=== PATIENT | male | born 1965 | race Caucasian/White ===

== ENCOUNTER 2022-05-08 20:57 | Emergency (ER) | payer SELFPAY ==
[2022-05-08 20:59] VITALS: BP 194/84; PULSE 64; RESP 18; TEMP 37; O2SAT 94; BMI 21.5
[2022-05-08 22:21] VITALS: BP 151/92; PULSE 77
--- NOTE | 2022-05-08 22:22 | EX.ED.VIS.UR ---
HPI HPI - URI History of Present Illness Chief Complaint: Cold Sx Informant: patient Onset/Context/Timing Onset: Weeks (1.5) Context: Gradual Onset Timing: Continuous Quality: Congestion, pressure Location: Face/sinus Current Severity: Moderate Maximum Severity: Moderate Worsened by: - (Nothing) Relieved by: - (Nothing tried decongestants and DayQuil) Associated Symptoms Associated Symptoms: Positive for Nasal Congestion, Headache, Sinus Pressure and Nonproductive cough (Minor, only at night); Negative for Myalgias, Nausea, Vomiting, Shortness of Breath or Chest Pain Narrative Narrative: Patient having URI/sinus symptoms for the past 1.5 weeks. No fevers that he knows of. No dyspnea. Ears are not hurting. States he is so congested he can barely breathe through his nose. ROS ROS ED Constitutional Constitutional ED: Denies chills or fever(s) ENT ENT ED: Reports as per HPI, nasal congestion, rhinorrhea, sinus pain and sinus pressure; Denies ear pain or sore throat Cardiovascular Cardiovascular: Denies chest pain or palpitations Respiratory/Chest Respiratory/Chest: Reports cough; Denies dyspnea Gastrointestinal Gastrointestinal: Denies abdominal pain, diarrhea, nausea or vomiting Genitourinary Genitourinary ED: Denies dysuria or hematuria Musculoskeletal Musculoskeletal: Denies myalgias or neck pain Integumentary Denies abscess or rash Neurologic Neurologic: Denies headache(s), paresthesias or weakness Psychiatric Psychiatric: Denies depression or suicidal thoughts Endocrine Endocrinology: Denies polydipsia or polyuria PFSH PFSH Medical History Smoker Medical History no medical history no medical history Home Medications azithromycin 250 mg tablet See Rx Instructions PO .COMPLEX #6 tabs 05/08/22 [Rx Last Taken Unknown] Allergy/AdvReac Type Severity Reaction Status Date / Time No Known Allergies Allergy Verified 05/08/22 20:58 Social History Smoking Status: Current every day smoker tobacco type: cigarettes EXAM Physical Exam Const Vital Signs: 05/08/22 20:59 05/08/22 21:16 Temperature 98.6 F Temperature Source Temporal Pulse Rate 64 Respiratory Rate 18 Respiratory Effort Normal Respiratory Pattern Normal Blood Pressure 194/84 H Blood Pressure Mean 120 Pulse Ox 94 Oxygen Delivery Method Room Air Positive well nourished and well developed General Appearance ED: well developed and NAD HEENT Reports moist mucous membranes HEENT Narrative: Bilateral maxillary sinus and ethmoid sinus tenderness, mildly tender in the frontals as well. No swelling or erythema. No purulent nasal discharge. There is bilateral nasal turbinate edema worse on the left. normocephalic and atraumatic Throat: Negative for posterior oropharynx abnormal Eyes PERRL and EOMs intact bilaterally Neck no lymphadenopathy, supple and no meningeal signs Resp normal respiratory effort and clear to auscultation bilaterally Cardio no murmurs Rate: regular rate Rhythm: regular rhythm Neuro oriented x3, CN's II-XII intact bilaterally and no sensory deficits noted Sensorium / Orientation: alert Motor Exam: strength 5/5 throughout Skin Lesions: no lesions Rashes: no rashes MDM MDM MDM Narrative Medical decision making narrative: Rapid viral COVID and influenza swabs are negative, given this I think it is reasonable to try him on antibiotics. I did advise that his blood pressure is elevated but he has been taking decongestants and that could be significantly contributing or causing this. He needs to have his blood pressure reevaluated by family physician when he is feeling better and not taking the decongestants anymore. I recommend doing Afrin/oxymetazoline nasal spray as well as needed for his symptoms. He is comfortable with that plan and asking for a work note. Discharge Plan Triage Chief Complaint: Cold Sx ED Provider: Ajith Figueroa Dx/Rx/DC Orders Clinical Impression: Acute sinusitis, Episode of hypertension Instructions: Hypertension Dc, ED Sinusitis (Antibiotic Treatment) Prescriptions: New azithromycin 250 mg tablet See Rx Instructions .ROUTE .COMPLEX Qty: 6 0RF Rx Instructions: For 250 mg dose pack: take 500 mg today (day 1), then 250 mg for 4 days (days 2-5) Stand Alone Forms: ED Work / School Excuse Primary Care Provider: Care Physician,No Primary Referrals: Yesenia Palm MD [Med Staff - Route Salesperson] - 1 Week if not improving Activity Restrictions/Additional Instructions: Try to avoid using oral decongestants given your blood pressure, but you can use oxymetazoline nasal spray, any brand, as needed, 2 sprays each nostril twice daily no more than 3 days at a time. Follow-up if you are not feeling better in a week, but also follow-up after you are feeling better to have your blood pressure reevaluated. Disposition Disposition: Home, Self Care
== END 2022-05-08 22:37 | disposition home or self-care (01) ==
PROVIDERS: Emergency Provider Emergency Medicine; Visit Provider Emergency Medicine
DX: J01.90 Acute sinusitis, unspecified (principal); R51.9 Headache, unspecified; I10 Essential (primary) hypertension; F17.210 Nicotine dependence, cigarettes, uncomplicated; R05.9 Cough, unspecified
CPT/HCPCS: 87428; 99282

== ENCOUNTER 2024-08-14 13:21 | Emergency (ER) | payer OTHER, SELFPAY ==
[2024-08-14 13:22] VITALS: BP 125/88; PULSE 79; RESP 16; TEMP 36.2; O2SAT 99
--- NOTE | 2024-08-14 13:43 | CT_ITS ---
PROCEDURE: CHEST WITHOUT CONTRAST REASON FOR EXAM: 69-year-old male, left anterior rib pain, concern for costochondral separation. TECHNIQUE: Chest CT without contrast. COMPARISON: None. FINDINGS: Hardware: None. Lymph nodes: No mediastinal hilar or axillary lymphadenopathy. Calcified bilateral hilar granulomas. Heart and Vasculature: The heart is normal in size without pericardial effusion. Minimal thoracic aortic calcifications. Thoracic aorta and pulmonary arteries have normal contours; noncontrast technique limits evaluation. Lungs and Airways: The central airways are patent. Mild emphysema and scattered areas of scarring. Right upper lobe lobular pulmonary nodule measuring 1.1 cm (series 4, image 55). Additional right lower lobe pulmonary nodule (series 4, image 67). No pleural effusion or pneumothorax. Upper Abdomen: Calcific plaque of the visualized abdominal aorta. Bones: Linear fracture deformity of the anterior left 4th rib. Thoracolumbar spondylosis. No acute osseous fracture. CT/Chest without Contrast IMPRESSION: 1. Linear fracture deformity of the anterior left 4th rib, which may represent costochondral fracturing in the correct clinical setting. 2. Mild emphysema and scattered areas of scarring. 3. Right upper and lower lobe pulmonary nodules, likely noncalcified granulomas . Correlation with prior chest imaging recommended if available. If not available, follow-up CT chest in 6-12 months is recommended to evaluate for stability. One or more dose reduction techniques were used (e.g., Automated exposure contr ol, adjustment of the mA and/or kV according to patient size, use of iterative reconstruction technique). Reading Location: [id number]
--- NOTE | 2024-08-14 13:43 | EX.ED.GENINJ ---
HPI History of Present Illness Chief Complaint: Chest Other Informant: patient Narrative Narrative: 59-year-old male states that a little over a week ago he slipped and fell on ice. He states the day after he was unable to get out of bed due to pain over the anterior left lower chest. Since that time he has been taking ibuprofen with some improvement. He notes that when he takes a deep breath or turns he feels a popping sensation in the ribs. No hemoptysis. PFSH PFSH Medical History Smoker Home Medications ?Medication ?Instructions ?Recorded ?Last Taken ?Type azithromycin 250 mg tablet See Rx Instructions PO .COMPLEX #6 05/08/22 Unknown Rx tabs Allergy/AdvReac Type Severity Reaction Status Date / Time No Known Allergies Allergy Verified 08/14/24 13:23 Social History Smoking Status: Current every day smoker tobacco type: cigarettes ROS ROS ED Constitutional Constitutional ED: Denies chills or weight loss Eyes Eyes: Denies change in vision or diplopia ENT ENT ED: Denies ear pain, rhinorrhea or sore throat Cardiovascular Cardiovascular: Reports chest pain and other Details: See history of present illness ; Denies orthopnea, palpitations or racing heartbeat Respiratory/Chest Respiratory/Chest: Denies cough, dyspnea or orthopnea Gastrointestinal Gastrointestinal: Denies abdominal pain, diarrhea, nausea or vomiting Genitourinary Genitourinary ED: Denies dysuria, hematuria or urinary frequency Musculoskeletal Musculoskeletal: Denies arthralgias or myalgias Integumentary Denies abscess or rash Neurologic Neurologic: Denies headache(s) or weakness Psychiatric Psychiatric: Denies anxiety, depression, suicidal ideation or suicidal thoughts Endocrine Endocrinology: Denies polydipsia, polyphagia or polyuria Allergic/Immunologic Allergic/Immunologic ED: Denies mouth swelling, tongue swelling or urticaria EXAM Physical Exam Const Vital Signs: 08/14/24 13:22 Temperature 97.1 F L Temperature Source Temporal Pulse Rate 79 Respiratory Rate 16 Blood Pressure 125/88 H Blood Pressure Mean 100 Pulse Ox 99 Oxygen Delivery Method Room Air Positive well nourished and well developed General Appearance ED: well developed HEENT Reports normocephalic, head/scalp atraumatic and moist mucous membranes Eyes PERRL and EOMs intact bilaterally Neck no lymphadenopathy, supple and no JVD Chest Wall Chest Narrative: Patient with tenderness over the anterior left lower costochondral border. With inspiration there is a crepitance like sensation. No ecchymosis is seen. No flail chest. Resp normal respiratory effort and clear to auscultation bilaterally Cardio regular rate, regular rhythm and no murmurs GI normal to inspection, nondistended, normoactive bowel sounds and non-tender Palpation: soft Back/Spine no CVA tenderness and normal ROM Extremity normal to inspection General Extremety ED: Negative for edema General Extremity: Negative for edema Neuro oriented x3 and CN's II-XII intact bilaterally Sensorium / Orientation: alert Motor Exam: strength 5/5 throughout Psych mental status grossly normal Mood & Affect: Negative for depressed or tearful Skin no rashes or lesions noted and no wounds MDM MDM MDM Narrative Medical decision making narrative: Differential diagnosis includes but not limited to rib fracture costochondral separation pneumothorax pleural effusion chest wall contusion A CT Chest was obtained. No obvious pneumothorax or pulmonary contusion or pleural effusion is noted. Please see radiologist read for full details. There is noted mild emphysema as well as pulmonary nodules. I recommended to the patient conservative care for the chest wall injury. I would recommend PCP follow-up especially for the pulmonary nodules. Lab Data Attestation: I reviewed the patient's lab results. Radiography Diagnostic Testing: Clinical Impression(s) from Imaging Studies Chest CT 08/14/24 13:43 IMPRESSION: 1. Linear fracture deformity of the anterior left 4th rib, which may represent costochondral fracturing in the correct clinical setting. 2. Mild emphysema and scattered areas of scarring. 3. Right upper and lower lobe pulmonary nodules, likely noncalcified granulomas. Correlation with prior chest imaging recommended if available. If not available, follow-up CT chest in 6-12 months is recommended to evaluate for stability. One or more dose reduction techniques were used (e.g., Automated exposure control, adjustment of the mA and/or kV according to patient size, use of iterative reconstruction technique). Reading Location: [facility] Discharge Plan Triage Chief Complaint: Chest Other ED Provider: Fransisco Friedman Dx/Rx/DC Orders Clinical Impression: Costochondral separation, Acute chest wall pain Instructions: ED Bruise, Rib Prescriptions: No Action azithromycin 250 mg tablet See Rx Instructions .ROUTE .COMPLEX Qty: 6 0RF Rx Instructions: For 250 mg dose pack: take 500 mg today (day 1), then 250 mg for 4 days (days 2-5) Primary Care Provider: Care Physician,No Primary Referrals: Care Physician,No Primary [Primary Care Provider] - Markel Flores MD [[facility]] - As Needed (for primary care) Print Language: Frisian Disposition Disposition: Home, Self Care
== END 2024-08-14 16:10 | disposition home or self-care (01) ==
PROVIDERS: Emergency Provider Emergency Medicine; Visit Provider Emergency Medicine
DX: S23.29XA Dislocation of other parts of thorax, initial encounter (principal); R07.89 Other chest pain; F17.210 Nicotine dependence, cigarettes, uncomplicated; W00.9XXA Unspecified fall due to ice and snow, initial encounter
CPT/HCPCS: 71250; 99282

== ENCOUNTER 2024-12-02 11:31 | Emergency (ER) | payer OTHER, SELFPAY ==
[2024-12-02 11:31] VITALS: BP 210/99; BP 215/97; PULSE 63; PULSE 72; RESP 14; TEMP 36.6; O2SAT 98; BMI 19.8
[2024-12-02 12:19] VITALS: BP 168/70; PULSE 87; RESP 18; TEMP 36.6; O2SAT 99
--- NOTE | 2024-12-02 12:21 | EDS_ITS ---
HPI History of Present Illness Chief Complaint: Back Informant: patient Narrative Narrative: 59-year-old male presenting to the emergency room with back pain. Patient states that 2 days ago he was trying to move his couch at home. He states he was trying to lift it and push it at the same time. States that the next day began to have some tightness in the bilateral low back. He denies any radicular symptoms. No bowel or bladder dysfunction. No fevers. 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 States he has been trying some heat and [id number] medications. He states he really does not want any other medicines but needs a work note. PFSH PFSH Medical History Smoker Home Medications ?Medication ?Instructions ?Recorded ?Last Taken ?Type azithromycin 250 mg tablet See Rx Instructions PO .COM PLEX #6 05/08/22 Unknown Rx tabs Allergy/AdvReac Type Severity Reaction Status Date / Time No Known Allergies Allergy Verified 12/02/24 11:32 Social History Smoking Status: Current every day smoker tobacco type: cigarettes ROS ROS ED Constitutional Constitutional ED: Denies chills, fever(s) or weight loss Eyes Eyes: Denies change in vision or diplopia ENT ENT ED: Denies ear pain, rhinorrhea or sore throat Cardiovascular Cardiovascular: Denies chest pain, orthopnea, palpitations or racing heartbeat Respiratory/Chest Respiratory/Chest: Denies cough, dyspnea or orthopnea Gastrointestinal Gastrointestinal: Denies abdominal pain, diarrhea, nausea or vomiting Genitourinary Genitourinary ED: Denies dysuria, hematuria or urinary frequency Musculoskeletal Musculoskeletal: Reports back pain; Denies arthralgias, myalgias or neck pain Integumentary Denies abscess or rash Neurologic Neurologic: Denies headache(s), paresthesias or weakness Psychiatric Psychiatric: Denies anxiety, depression, suicidal ideation or suicidal thoughts Endocrine Endocrinology: Denies polydipsia, polyphagia or polyuria Allergic/Immunologic Allergic/Immunologic ED: Denies mouth swelling, tongue swelling or urticaria EXAM Physical Exam Const Vital Signs: 12/02/24 11:31 12/02/24 11:31 12/02/24 12:19 Temperature 98 F 97.9 F Temperature Source Temporal Pulse Rate 72 63 87 Respiratory Rate 14 14 18 Blood Pressure 210/99 H 215/97 H 168/70 H Blood Pressure Mean 136 136 102 Pulse Ox 98 98 99 Oxygen Delivery Method Room Air Room Air Positive well nourished and well developed General Appearance ED: well developed HEENT Reports normocephalic, head/scalp atraumatic and moist mucous membranes Eyes PERRL and EOMs intact bilaterally Neck no lymphadenopathy, supple and no JVD Resp normal respiratory effort and clear to auscultation bilaterally Cardio regular rate, regular rhythm and no murmurs GI normal to inspection, nondistended, normoactive bowel sounds and non-tender Palpation: soft Back/Spine no CVA tenderness Back/Spine Narrative: Patient with lumbar paraspinal muscle tenderness to palpation with palpable spasm particularly on the left. There is no midline tenderness. There is no rash. +2 patellar and Achilles reflexes. Normal sensation normal muscle strength of lower extremities. Extremity normal to inspection General Extremety ED: Negative for edema General Extremity: Negative for edema Neuro oriented x3 and CN's II-XII intact bilaterally Sensorium / Orientation: alert Motor Exam: strength 5/5 throughout Psych mental status grossly normal Mood & Affect: Negative for depressed or tearful Skin no rashes or lesions noted and no wounds MDM MDM MDM Narrative Medical decision making narrative: Differential diagnosis includes but not limited to lumbar myofascial strain muscular spasm disc herniation fracture discitis abscess hematoma cauda equina syndrome Based on the history and the physical exam I feel like this is most likely to be lumbar myofascial strain. He wishes to treat with conservative treatments with [id number] anti-inflammatories and heat and stretching which I think is very reasonable. He will follow-up with primary care if not improving return if worsening History & Record Review Discussion w/independent historian: Patient Additional record(s) reviewed:: Prior ED visit Discharge Plan Triage Chief Complaint: Back ED Provider: Fransisco Friedman Dx/Rx/DC Orders Clinical Impression: Strain of lumbar paraspinal muscle, Low back pain Instructions: ED Back Sprain/Strain Prescriptions: No Action azithromycin 250 mg tablet See Rx Instructions .ROUTE .COMPLEX Qty: 6 0RF Rx Instructions: For 250 mg dose pack: take 500 mg today (day 1), then 250 mg for 4 days (days 2-5) Primary Care Provider: Care Physician,No Primary Referrals: Federico Milton MD [Med Staff - Construction Equipment Mechanic] - 1 Week if not improving Care Physician,No Primary [Primary Care Provider] - Print Language: Romanian Disposition Disposition: Home, Self Care
== END 2024-12-02 12:22 | disposition home or self-care (01) ==
PROVIDERS: Emergency Provider Emergency Medicine; Referring Provider Emergency Medicine; Visit Provider Emergency Medicine
DX: S39.012A Strain of muscle, fascia and tendon of lower back, initial encounter (principal); F17.210 Nicotine dependence, cigarettes, uncomplicated; X50.0XXA Overexertion from strenuous movement or load, initial encounter
CPT/HCPCS: 99282